=== PATIENT | female | born 1990 | race Hispanic/Latino ===

== ENCOUNTER 2019-04-01 05:28 | Inpatient (IN) | payer MEDICAID ==
[~2019-04-01] VITALS: Ht 165.1 cm; Wt 90.7 kg
[2019-04-01] VITALS (22 sets, daily range): BP systolic 102–125; BP diastolic 60–83
[2019-04-01] MEDS ORDERED: ONDANSETRON HCL 4 MG/2 ML VIAL ONE ×2 (05:40→12:48)
[2019-04-01] MEDS ORDERED: MORPHINE SULFATE 4 MG/1ML SYG ONE ×2 (05:44→07:40)
[2019-04-01] MEDS ORDERED: ONDANSETRON HCL 4 MG/2 ML VIAL IV PRN (07:00)
[2019-04-01] MEDS ORDERED: ACETAMINOPHEN 325 MG TAB PO PRN (07:00)
[2019-04-01] MEDS ORDERED: MORPHINE SULFATE 2 MG/ML 1ML SYG IV PRN (07:00)
[2019-04-01 07:08] LABS: BASOPHILS % (AUTO) 0.3 % (0.0-5.0); EOSINOPHILS % (AUTO) 0.1 % (0.0-8.0); HEMATOCRIT 44.7 % (36-48); LYMPHOCYTES % (AUTO) 18.1 % (21.0-51.0); MEAN CORPUSCULAR HEMOGLOBIN 29.5 pg (27.0-33.0); MEAN CORPUSCULAR HGB CONC 32.3 g/dL (32.0-36.0); MEAN CORPUSCULAR VOLUME 91.3 fL (79-99); MONOCYTES % (AUTO) 2.8 % (3.0-13.0); NEUTROPHILS % (AUTO) 78.7 % (40.0-77.0); PLATELET COUNT (AUTO) 236 K/uL (130-400); RED CELL DISTRIBUTION WIDTH 13.4 % (11.0-15.5)
[2019-04-01 07:13] LABS: CREATININE 0.7 mg/dL (0.5-1.5); POTASSIUM 4.5 mmol/L (3.5-5.1)
[2019-04-01 07:17] LABS: INR 0.97 (0.85-1.15); PARTIAL THROMBOPLASTIN TIME 27.2 SEC (26.3-35.5); PROTHROMBIN TIME 10.2 SEC (9.6-11.6)
[2019-04-01 07:19] LABS: ALBUMIN 3.7 g/dL (3.5-5.0); BILIRUBIN,TOTAL 0.3 mg/dL (0.2-1.0); TOTAL PROTEIN, SERUM 7.5 g/dL (6.0-8.3)
[2019-04-01] MEDS ORDERED: SODIUM CHLORIDE 0.9% 1000ML 1,000 ML IV ONE (07:54)
--- NOTE | 2019-04-01 08:18 | NUR ---
ER ADMIT PATIENT RECEIVED FROM ER VIA STRETCHER. 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 SHE IS AWAKE, ALERT AND ORIENTED X3. SHE IS ACCOMPANIED BY SIGNIFICANT OTHER. BOTH HAVE BEEN ORIENTED TO ROOM AND USE OF CALL LIGHT. SPLINT IS IN PLACE TO RLE. BED IS IN LOWEST POSITION AND LOCKED WITH PERSONAL BELONGINGS WITHIN REACH.
[2019-04-01] MEDS ORDERED: ENOXAPARIN SODIUM 30 MG/0.3 ML SQ SCH (09:00)
[2019-04-01] MEDS: FAMOTIDINE/PF 20 MG/2 ML VIAL IV SCH ×2 (09:03→20:46)
[2019-04-01] MEDS: SODIUM CHLORIDE 0.9% 1000ML 1,000 ML IV SCH ×3 (09:03→20:47)
--- NOTE | 2019-04-01 11:14 | NUR ---
ORTHOPEDIC MD DR. CARCAMO IN TO SEE PATIENT. CONSENT HAS BEEN SIGNED FOR PENDING PROCEDURE.
--- NOTE | 2019-04-01 11:55 | NUR ---
Patient awake, alert, having pain to right foot, cast in place, swelling present to right foot but pedal pulses strong. Pending to be picked up by surgery. Mother at bedside.
[2019-04-01] MEDS ORDERED: LORAZEPAM 2 MG/ML 1 ML VIAL IVP PRN ×2 (12:30)
[2019-04-01] MEDS ORDERED: CHLORDIAZEPOXIDE HCL 25 MG CAP PO PRN ×2 (12:30)
[2019-04-01] MEDS ORDERED: PHARMACY COMMUNICATION MISC PRN (12:30)
[2019-04-01] MEDS ORDERED: PROPOFOL 10 MG/ML 20ML VIAL IV ONE ×3 (12:33→14:15)
[2019-04-01] MEDS ORDERED: MIDAZOLAM HCL 1 MG/ML 2ML VIAL ONE ×2 (12:48→15:05)
[2019-04-01] MEDS ORDERED: LIDOCAINE PF 2% 5ML ABBOJECT ONE (12:48)
[2019-04-01] MEDS ORDERED: DEXAMETHASONE SOD PHOSPHATE 10MG/ML 1ML VIAL ONE (12:48)
[2019-04-01] MEDS ORDERED: FENTANYL CITRATE PF 50 MCG/1 ML 2ML VIAL ONE (12:49)
[2019-04-01] MEDS ORDERED: ROCURONIUM 10MG/1ML SYR 10 MG/ML ML ONE (12:51)
[2019-04-01] MEDS ORDERED: CEFAZOLIN SODIUM 1 GM VIAL IVP ONE (13:01)
[2019-04-01] MEDS ORDERED: TRAMADOL HCL 50 MG TABLET PO PRN (14:30)
[2019-04-01] MEDS ORDERED: DiphenhydrAMINE HCL 50 MG/ML VIAL IVP PRN (14:30)
[2019-04-01] MEDS ORDERED: HYDROCODONE/ACETAMINOPHEN 5/325 MG TAB PO PRN ×2 (14:30)
[2019-04-01] MEDS ORDERED: LIDOCAINE HCL-MPF 1% 2ML VIAL IVP PRN (14:30)
[2019-04-01] MEDS ORDERED: DIPHENHYDRAMINE HCL 25 MG CAPSULE PO PRN (14:30)
[2019-04-01] MEDS: ACETAMINOPHEN EXTRA STRENGTH 500 MG TABLET PO SCH ×2 (14:30→22:35)
[2019-04-01] MEDS ORDERED: CALCIUM CARBONATE 500 MG TABLET PO PRN (14:30)
[2019-04-01] MEDS ORDERED: FERROUS FUMARATE 324 MG TABLET PO PRN (14:30)
[2019-04-01] MEDS ORDERED: POTASSIUM CHLORIDE 10% ELIXIR 20 MEQ/15 ML UDCUP PO PRN (14:30)
[2019-04-01] MEDS ORDERED: POTASSIUM CHLORIDE 20 MEQ ERTAB PO PRN (14:30)
[2019-04-01] MEDS ORDERED: POTASSIUM CHLORIDE 20MEQ/100ML 100 ML IV PRN (14:30)
[2019-04-01] MEDS ORDERED: GLYCOPYRROLATE 1 MG/5 ML SYRINGE ONE (14:32)
[2019-04-01] MEDS ORDERED: NEOSTIGMINE 5MG/5ML SYR IV ONE (14:32)
[2019-04-01] MEDS ORDERED: MEPERIDINE-PF 25 MG/ML SYG ONE (15:26)
--- NOTE | 2019-04-01 15:42 | NUR ---
HOWARD LEIVA SPOKE WITH DR. CARCAMO IN REGARDS TO PT'S PAIN LEVEL. ORDERS WERE GIVEN TO HOWARD LEIVA, FOR TORADOL 30 MG EVERY 8 HOURS, AND TO TAKE PT TO HER RM. Addendum: 04/01/19 at 1546 by DENYS RO RN RN Amended: Links added.
--- NOTE | 2019-04-01 16:00 | NUR ---
BACK FROM SURGERY PATIENT RETURNED FROM PACU VIA HOSPITAL BED CRYING AND C/P PAIN TO RIGHT LEG. SHE WAS RECENTLY MEDICATED IN PACU, WILL CONTINUE TO MONITOR. SHE HAS BEEN REORIENTED TO ROOM AND USE OF CALL LIGHT. FAMILY IS PRESENT IN ROOM. SHE HAS TWO MYESHA BANDAGES TO RIGHT LOWER LEG DISTALLY AND PROXIMALLY. BED IS IN LOWEST POSITION AND LOCKED WITH POST OP V/S IN PLACE. WILL CONTINUE TO MONITOR.
[2019-04-01] MEDS: KETOROLAC TROMETHAMINE 30MG/ML IV PRN (17:41)
[2019-04-01] MEDS: CEFAZOLIN 3GM /D5W 100ML 100 ML IV SCH (20:46)
[2019-04-02] MEDS: SODIUM CHLORIDE 0.9% 1000ML 1,000 ML IV SCH ×2 (00:30→12:41)
[2019-04-02] MEDS: KETOROLAC TROMETHAMINE 30MG/ML IV PRN ×2 (00:48→08:05)
[2019-04-02 03:47] VITALS: BP 115/79
[2019-04-02] MEDS: CEFAZOLIN 3GM /D5W 100ML 100 ML IV SCH (03:47)
[2019-04-02 05:09] LABS: BASOPHILS % (AUTO) 0.1 % (0.0-5.0); HEMATOCRIT 35.5 % (36-48); LYMPHOCYTES % (AUTO) 10.7 % (21.0-51.0); MEAN CORPUSCULAR HEMOGLOBIN 30.1 pg (27.0-33.0); MEAN CORPUSCULAR HGB CONC 33.4 g/dL (32.0-36.0); MEAN CORPUSCULAR VOLUME 90.4 fL (79-99); MONOCYTES % (AUTO) 4.6 % (3.0-13.0); NEUTROPHILS % (AUTO) 84.6 % (40.0-77.0); PLATELET COUNT (AUTO) 205 K/uL (130-400); RED BLOOD CELL COUNT(AUTO) 3.93 MIL/uL (4.00-5.50); RED CELL DISTRIBUTION WIDTH 13.1 % (11.0-15.5); WHITE BLOOD COUNT (AUTO) 13.5 K/uL (4.8-10.8)
[2019-04-02 05:27] LABS: CREATININE 0.8 mg/dL (0.5-1.5); POTASSIUM 4.1 mmol/L (3.5-5.1)
[2019-04-02] MEDS: ACETAMINOPHEN EXTRA STRENGTH 500 MG TABLET PO SCH ×3 (05:55→22:53)
[2019-04-02 07:36] VITALS: BP 107/62
[2019-04-02] MEDS: FAMOTIDINE/PF 20 MG/2 ML VIAL IV SCH ×2 (07:40→21:23)
[2019-04-02] MEDS: POLYETHYLENE GLYCOL 3350 17 GM POWD.PACK PO SCH (07:40)
[2019-04-02] MEDS: ENOXAPARIN SODIUM 40 MG/0.4 ML SYRINGE SQ SCH (07:40)
--- NOTE | 2019-04-02 08:00 | NUR ---
Pt awake , alert, oriented x3. Reported pain to right level 6 on pain scale. There is some bruising and swelling to right leg. Nima wrap in place. Strong pedal pulses.
[2019-04-02 11:29] VITALS: BP 108/73
[2019-04-02] MEDS ORDERED: PSYLLIUM SEED 1 EACH PACKET PO SCH (12:00)
--- NOTE | 2019-04-02 14:29 | NUR ---
cm note met with patient and states resides at home with spouse, is independent with adls and ambulation. no dme. [facility] dc plan is back to home. [facility] did well with her crutches, and has spouse to assist at home. informed her that if walker needed would have to see if her medicaid will cover or private pay rates if not covered. , states she had medicaid d/t only. will continue to follow up as needed. Addendum: 04/02/19 at 1431 by ELIANE BASURTO CM Amended: Links added.
[2019-04-02 16:05] VITALS: BP 126/85
[2019-04-02 19:04] VITALS: BP 97/60
[2019-04-02 23:03] VITALS: BP 109/63
[2019-04-03] MEDS: KETOROLAC TROMETHAMINE 30MG/ML IV PRN (00:15)
[2019-04-03 04:00] VITALS: BP 105/72
[2019-04-03 04:46] LABS: HEMATOCRIT 31.2 % (36-48); MEAN CORPUSCULAR HEMOGLOBIN 30.3 pg (27.0-33.0); MEAN CORPUSCULAR HGB CONC 33.4 g/dL (32.0-36.0); MEAN CORPUSCULAR VOLUME 90.7 fL (79-99); PLATELET COUNT (AUTO) 189 K/uL (130-400); RED BLOOD CELL COUNT(AUTO) 3.44 MIL/uL (4.00-5.50); RED CELL DISTRIBUTION WIDTH 13.1 % (11.0-15.5); WHITE BLOOD COUNT (AUTO) 10.4 K/uL (4.8-10.8)
[2019-04-03 04:52] LABS: CREATININE 0.8 mg/dL (0.5-1.5); POTASSIUM 3.6 mmol/L (3.5-5.1)
[2019-04-03] MEDS: ACETAMINOPHEN EXTRA STRENGTH 500 MG TABLET PO SCH (06:01)
[2019-04-03 08:17] VITALS: BP 119/70
[2019-04-03] MEDS: FAMOTIDINE/PF 20 MG/2 ML VIAL IV SCH (08:41)
[2019-04-03] MEDS: POLYETHYLENE GLYCOL 3350 17 GM POWD.PACK PO SCH (08:41)
[2019-04-03] MEDS: ENOXAPARIN SODIUM 40 MG/0.4 ML SYRINGE SQ SCH ×2 (08:42→08:49)
--- NOTE | 2019-04-03 10:45 | NUR ---
PT D/C WITH TEACH BACK SUCCESSFULLY IV REMOVED, CATHETER INTACT DETAILED INSTRUCTIONS ON DR. CARCAMO'S D/C ORDERS GIVEN
[2019-04-03] MEDS ORDERED: BISACODYL 5 MG TABLET.DR PO PRN (14:30)
[2019-04-04] MEDS ORDERED: BISACODYL 10 MG SUPP.RECT RC PRN (14:30)
== END 2019-04-03 11:52 | disposition home or self-care (01) | DRG 313 ==
LOC: EDH 05:28 → 4AH 05:29
PROVIDERS: ADMIT Hospitalist; ATTEND Hospitalist
PROC: 0QSJXZZ Reposition Right Fibula, External Approach (ICD-10-PCS; principal; 2019-04-01 12:45)
PROC: 0QSG06Z Reposition Right Tibia with Intramedullary Internal Fixation Device, Open Approach (ICD-10-PCS; 2019-04-01 12:45)
DX: S82.201A Unspecified fracture of shaft of right tibia, initial encounter for closed fracture (principal); E66.9 Obesity, unspecified; S82.401A Unspecified fracture of shaft of right fibula, initial encounter for closed fracture; F12.90 Cannabis use, unspecified, uncomplicated; F17.210 Nicotine dependence, cigarettes, uncomplicated; Y93.89 Activity, other specified; W01.0XXA Fall on same level from slipping, tripping and stumbling without subsequent striking against object, initial encounter; Y92.89 Other specified places as the place of occurrence of the external cause; Y99.8 Other external cause status; Z68.33 Body mass index [BMI] 33.0-33.9, adult
CPT/HCPCS: 36415; 73590; 73620; 80048; 80053; 84702; 85025; 85027; 85610; 85730; 93005; 97039; G0378; G0480; J0690; J1100; J1650; J1885; J2001; J2175; J2250; J2270; J2405; J2704; J2710; J3010; J3490; J7030